=== PATIENT | female | born 1965 | race Caucasian/White ===

== ENCOUNTER 2019-01-29 15:45 | Emergency (ER) | payer MEDICAID ==
[~2019-01-29] VITALS: Ht 152.4 cm; Wt 90.7 kg
[2019-01-29 15:51] VITALS: Ht 152.4 cm; Wt 90.7 kg
[2019-01-29 18:09] LABS: CALCIUM 9.5 mg/dL (8.5-10.1); CARBON DIOXIDE 24.9 mmol/L (21-32); CHLORIDE SERUM 102 mmol/L (98-107); CREATININE SERUM 0.7 mg/dL (0.6-1.0); GFR1 > 60 mL/min; GLUCOSE SERUM 130 mg/dL (74-106); POTASSIUM SERUM 3.7 mmol/L (3.5-5.1); SODIUM SERUM 138 mmol/L (136-145)
[2019-01-29 18:13] LABS: ALKALINE PHOSPHATASE 134 U/L (46-116); ALT/SGPT 55 U/L (14-59); AMYLASE 56 U/L (25-115); AST/SGOT 35 U/L (15-37); BILIRUBIN TOTAL 0.52 mg/dL (0.20-1.00); LIPASE 80 IU/L (73-393)
[2019-01-29 19:15] LABS: PLATELET COUNT 268 x10^3mcL (130-400); RED CELL DISTRIBUTION WIDTH 13.3 % (11.5-14.5)
[2019-01-29 19:18] LABS: BASOPHIL % 0 % (0-2)
[2019-01-29 23:39] VITALS: BP 164/106
== END 2019-01-29 23:39 | disposition short-term general hospital (02) ==
LOC: ED 15:45
PROVIDERS: Specialist
DX: N83.201 Unspecified ovarian cyst, right side (principal)
CPT/HCPCS: J1885; J2270; J2405; Q9966; Q9967